=== PATIENT | male | born 1950 | race Caucasian/White ===

== ENCOUNTER → 2018-12-29 10:32 | Outpatient (CLI) | payer MEDICARE, BC, SELFPAY ==
--- NOTE | 2018-12-29 11:15 | RAD_ITS ---
STUDY: X-RAY - PELVIS AND RIGHT HIP REASON FOR EXAM: Male, 68 years old. Pain, no known injury. TECHNIQUE: 3 views of the pelvis and hip. COMPARISON: None. FINDINGS: No visible fracture. No osseous destruction. Alignment anatomic. Severe right hip osteoarthritis with complete loss of cephalad joint space with bwhh-cf-avyn articulation and sclerosis and cystic change in both the acetabular roof in the upper aspect of the femoral head. Only mild osteoarthritis of the left hip. No acute soft tissue abnormality. Calcific atherosclerosis. RAD/HIP, UNI W/ Pelvis 2-3 Views IMPRESSION: Severe right hip osteoarthritis. Electronically Signed: Jourdan Rodriguez, at 20:01 EDT Tel , Service support ,
--- NOTE | 2018-12-29 11:15 | RAD_ITS ---
STUDY: X-RAY - RIGHT KNEE REASON FOR EXAM: Male, 68 years old. Pain with no known injury. TECHNIQUE: 4 view(s) of the knee. COMPARISON: None. FINDINGS: No visible fracture. No osseous destruction. Alignment anatomic. Mild tricompartmental osteoarthritis. Soft tissues unremarkable. RAD/Knee 4 or More Views IMPRESSION: No acute osseous abnormality. Mild for age tricompartmental osteoarthritis. Electronically Signed: Jourdan Rodriguez, at 19:49 EDT Tel , Service support ,
[2018-12-29 12:55] LABS: Absolute Lymphocyte Count 1.99 X10^3/uL (0.83-4.51); Absolute Neutrophil Count 3.7 X10^3/uL (2.0-7.7); Basophil# 0.04 X10^3/uL; Basophil% 0.6 % (0-1); Eosinophil# 0.11 X10^3/uL; Eosinophils% 1.7 % (0-5); Hematocrit 46.8 % (40-54); Hemoglobin 16.6 g/dL (13.0-16.5); Lymphocyte # 1.99 X10^3/ul (4.0); Mean Corp Hgb Conc 35.5 g/dL (32-36); Mean Corpuscular Volume 90.3 fL (80-94); Mean Platelet Vol. 10.2 fl (6.2-12.0); Monocyte# 0.56 X10^3/uL; Monocyte% 8.7 % (0-10); NRBC Flagged by Analyzer 0 % (0-5); Neutrophil % 57.7 % (47-70); Platelet Count 206 K/mm3 (150-450); RBC Distribution Width CV 13.5 % (11.6-14.6); RBC Distribution Width SD 45.1 fl (35.1-43.9); Red Blood Count 5.18 M/mm3 (4.6-6.2); White Blood Count 6.4 K/mm3 (4.4-11.0)
[2018-12-29 13:19] LABS: ALB/GLOB Ratio 1.1 RATIO (0.9-2.4); AST(SGOT) 22 U/L (15-37); Alanine Aminotransfer ALT/SGPT 35 U/L (16-61); Alkaline Phosphatase 70 U/L (45-117); Anion Gap 4 (5-15); BUN 21 mg/dL (7-18); BUN/Creat Ratio 22.4 RATIO (10-20); Calcium,Total 8.6 mg/dL (8.5-10.1); Chloride 109 mmol/L (98-107); Creatinine, Serum 0.94 mg/dL (0.70-1.30); EST Glomerular Filtration Rate 85 mL/min (>60); Est Glom Filt Rate - Afr Amer 103 mL/min (>60); Globulin 3.8 g/dL (2.2-4.2); Glucose 105 mg/dL (74-106); PSA,Total - Annual Screen 2.12 ng/mL (0.00-4.00); Potassium 3.8 mmol/L (3.5-5.1); Protein, Total 7.8 g/dL (6.4-8.2); Sodium Level 140 mmol/L (136-145); Thyroid Stim Hormone (TSH) 3.11 uIU/mL (0.358-3.74)
[2018-12-29 14:53] LABS: Hepatitis C Antibody Non-Reactive (Nonreactive)
== END ==
PROVIDERS: Family Provider Family Medicine Geriatric Medicine; PCP Family Medicine Geriatric Medicine; Referring Provider Family Medicine Geriatric Medicine; Visit Provider Family Medicine Geriatric Medicine
DX: R53.83 Other fatigue (principal); Z12.5 Encounter for screening for malignant neoplasm of prostate; Z13.89 Encounter for screening for other disorder; M25.569 Pain in unspecified knee; M25.559 Pain in unspecified hip
CPT/HCPCS: 36415; 73502; 73564; 80053; 84153; 84443; 85025; 86803; G0103

== ENCOUNTER → 2019-02-07 09:11 | Outpatient (CLI) | payer MEDICARE, BC, SELFPAY ==
--- NOTE | 2019-02-07 09:12 | RAD_ITS ---
STUDY: X-RAY - LUMBAR SPINE REASON FOR EXAM: Male, 68 years old. Low back pain, right hip pain. TECHNIQUE: 5 view(s) of the lumbar spine were obtained. COMPARISON: None FINDINGS: Normal lumbar lordosis. There is no substantial scoliosis. There is a normal alignment of the vertebrae. Moderate wedge compression fracture of L1 which may be acute or chronic. Clinical correlation MRI may be useful. Normal disc space heights. The soft tissue structures are unremarkable. RAD/L/S Spine Min 4 Views IMPRESSION: Moderate wedge compression fracture of L1 which may be acute or chronic and clinical correlation MRI would be useful. Electronically Signed: Mauricio Thomas MD at 9:57 EDT Tel , Service support ,
== END ==
PROVIDERS: Family Provider Family Medicine Geriatric Medicine; PCP Family Medicine Geriatric Medicine; Referring Provider Orthopaedic Surgery; Visit Provider Orthopaedic Surgery
DX: R20.8 Other disturbances of skin sensation (principal)
CPT/HCPCS: 72110

== ENCOUNTER → 2019-03-30 08:41 | Outpatient (CLI) | payer MEDICARE, BC, SELFPAY ==
[2019-02-07 09:17] VITALS: BMI 38.2
[2019-03-30 11:45] LABS: Absolute Lymphocyte Count 3.56 X10^3/uL (0.83-4.51); Absolute Neutrophil Count 4.2 X10^3/uL (2.0-7.7); Basophil# 0.04 X10^3/uL; Basophil% 0.5 % (0-1); Eosinophil# 0.18 X10^3/uL; Hematocrit 46.7 % (40-54); Hemoglobin 16.5 g/dL (13.0-16.5); Lymphocyte # 3.56 X10^3/ul (4.0); Lymphocyte % 40.5 % (19-41); Mean Corp Hgb Conc 35.3 g/dL (32-36); Mean Corpuscular Hgb 31.4 pg (27.0-32.0); Mean Corpuscular Volume 88.8 fL (80-94); Mean Platelet Vol. 10.1 fl (6.2-12.0); Monocyte# 0.79 X10^3/uL; NRBC Flagged by Analyzer 0 % (0-5); Neutrophil # 4.21 X10^3/uL (2.7-7.7); Neutrophil % 47.8 % (47-70); Platelet Count 215 K/mm3 (150-450); RBC Distribution Width CV 13.2 % (11.6-14.6); RBC Distribution Width SD 42.7 fl (35.1-43.9); Red Blood Count 5.26 M/mm3 (4.6-6.2); White Blood Count 8.8 K/mm3 (4.4-11.0)
[2019-03-30 12:02] LABS: ALB/GLOB Ratio 1.3 RATIO (0.9-2.4); AST(SGOT) 18 U/L (15-37); Alanine Aminotransfer ALT/SGPT 31 U/L (16-61); Albumin, Serum 4.4 g/dL (3.2-5.0); Alkaline Phosphatase 73 U/L (45-117); Anion Gap 8 (5-15); BUN 18 mg/dL (7-18); BUN/Creat Ratio 16.5 RATIO (10-20); Calcium,Total 8.8 mg/dL (8.5-10.1); Chloride 112 mmol/L (98-107); Creatinine, Serum 1.09 mg/dL (0.70-1.30); EST Glomerular Filtration Rate 71 mL/min (>60); Est Glom Filt Rate - Afr Amer 87 mL/min (>60); Globulin 3.3 g/dL (2.2-4.2); Glucose 106 mg/dL (74-106); Potassium 3.8 mmol/L (3.5-5.1); Protein, Total 7.7 g/dL (6.4-8.2); Sodium Level 145 mmol/L (136-145); Thyroid Stim Hormone (TSH) 4.63 uIU/mL (0.358-3.74)
[2019-03-30 12:03] LABS: Vitamin D,25 Hydroxy 14.5 ng/mL (29.95-100.01)
== END ==
PROVIDERS: Family Provider Family Medicine Geriatric Medicine; PCP Family Medicine Geriatric Medicine; Visit Provider Family Medicine Geriatric Medicine
DX: E55.9 Vitamin D deficiency, unspecified (principal); R53.83 Other fatigue
CPT/HCPCS: 36415; 80053; 82306; 84443; 85025

== ENCOUNTER → 2019-04-13 08:18 | Outpatient (CLI) | payer MEDICARE, BC, SELFPAY ==
[2019-04-13 07:53] VITALS: BMI 38.2
--- NOTE | 2019-04-13 08:33 | RAD_ITS ---
STUDY: X-RAY - PELVIS AND RIGHT HIP REASON FOR EXAM: Male, 68 years old. PAIN TECHNIQUE: 3 views of the pelvis and hip. COMPARISON: 12/29/2018 FINDINGS: There is a non-specific bowel gas pattern. Normal visualized soft tissue structures. Normal bilateral superior and inferior pubic rami. Normal pubic symphysis. Normal bilateral ischial tuberosities. There are osteoarthritic changes of the femoral head with marginal osteophyte formation. There is cortical sclerosis with sub-cortical cyst formation of the acetabulum and adjacent/superior femoral head. There is severe articular joint space narrowing of the hip. RAD/HIP, UNI W/ Pelvis 2-3 Views IMPRESSION: Severe osteoarthrosis of the right hip similar since 12/29/2017 Electronically Signed: Chirag Tripathi MD (Brooks) at 12:39 EST , Service support ,
== END ==
PROVIDERS: Family Provider Family Medicine Geriatric Medicine; PCP Family Medicine Geriatric Medicine; Referring Provider Orthopaedic Surgery; Visit Provider Orthopaedic Surgery
DX: M16.11 Unilateral primary osteoarthritis, right hip (principal)
CPT/HCPCS: 73502

== ENCOUNTER → 2019-05-07 13:58 | Outpatient (CLI) | payer MEDICARE, BC, SELFPAY ==
[2019-04-23 08:16] VITALS: BMI 38.8
[2019-05-07 10:06] VITALS: BMI 38.8
--- NOTE | 2019-05-07 13:59 | CT_ITS ---
STUDY: CT RIGHT KNEE WITHOUT CONTRAST REASON FOR EXAM: Male, 68 years old. PRE-OP [facility] HIP RADIATION DOSAGE (If Supplied By Facility): CTDIvol = ( 24.35 ) mGy, DLP = ( 1953.90 ) mGycm TECHNIQUE: Transaxial CT imaging of the knee was performed. Coronal and sagittal images were reformatted. Individualized dose optimization techniques were used for this CT. COMPARISON: None. FINDINGS: Degenerative changes in the medial femoral condyle and medial tibial plateau. There is moderate narrowing of the articular joint space of the medial knee compartment. Degenerative changes in the lateral femoral condyle and lateral tibial plateau.There is moderate narrowing of the articular joint space of the lateral knee compartment. Normal proximal tibiofibular articulation. There is small joint effusion. The quadriceps tendon is grossly normal. The patellar tendon is grossly normal. Normal Hoffa''s fat pad. Severe degenerative osteoarthritis is in the right hip joint. The alignment of the osseous structures is anatomic. CT/Extremity Lower without Contra IMPRESSION: Degenerative osteoarthritis. Electronically Signed: Lisa Ta, at 7:56 EST Tel , Service support ,
== END ==
PROVIDERS: Family Provider Family Medicine Geriatric Medicine; PCP Family Medicine Geriatric Medicine; Referring Provider Orthopaedic Surgery; Visit Provider Orthopaedic Surgery
DX: M16.11 Unilateral primary osteoarthritis, right hip (principal)
CPT/HCPCS: 73700

== ENCOUNTER → 2019-05-16 15:07 | Outpatient (CLI) | payer MEDICARE, BC, SELFPAY ==
[2019-02-07 09:17] VITALS: BMI 38.2
[2019-05-07 10:06] VITALS: BMI 38.8
[2019-05-16 17:56] LABS: Absolute Lymphocyte Count 2.24 X10^3/uL (0.83-4.51); Basophil# 0.04 X10^3/uL; Basophil% 0.6 % (0-1); Eosinophil# 0.07 X10^3/uL; Hemoglobin 16.3 g/dL (13.0-16.5); Lymphocyte # 2.24 X10^3/ul (4.0); Mean Corp Hgb Conc 34.7 g/dL (32-36); Mean Corpuscular Volume 89.5 fL (80-94); Mean Platelet Vol. 10.3 fl (6.2-12.0); Monocyte# 0.66 X10^3/uL; Monocyte% 9.4 % (0-10); NRBC Flagged by Analyzer 0 % (0-5); Neutrophil # 3.97 X10^3/uL (2.7-7.7); Neutrophil % 56.9 % (47-70); Platelet Count 206 K/mm3 (150-450); RBC Distribution Width CV 13.3 % (11.6-14.6); RBC Distribution Width SD 43.6 fl (35.1-43.9); Red Blood Count 5.25 M/mm3 (4.6-6.2)
[2019-05-16 18:15] LABS: International Normalized Ratio 1.3; Prothrombin Time (Protime)PT. 15.6 SECONDS (11.7-14.9)
[2019-05-16 18:33] LABS: Anion Gap 5 (5-15); BUN 20 mg/dL (7-18); BUN/Creat Ratio 21.3 RATIO (10-20); Calcium,Total 8.9 mg/dL (8.5-10.1); Chloride 112 mmol/L (98-107); Creatinine, Serum 0.94 mg/dL (0.70-1.30); EST Glomerular Filtration Rate 85 mL/min (>60); Est Glom Filt Rate - Afr Amer 103 mL/min (>60); Glucose 96 mg/dL (74-106); Potassium 3.8 mmol/L (3.5-5.1); Sodium Level 141 mmol/L (136-145); Thyroid Stim Hormone (TSH) 2.31 uIU/mL (0.358-3.74)
== END ==
PROVIDERS: Family Provider Family Medicine Geriatric Medicine; PCP Family Medicine Geriatric Medicine; Visit Provider Family Medicine Geriatric Medicine
DX: Z01.818 Encounter for other preprocedural examination (principal); E03.9 Hypothyroidism, unspecified; I10 Essential (primary) hypertension
CPT/HCPCS: 36415; 80048; 84443; 85025; 85610

== ENCOUNTER 2019-05-24 09:24 | Observation (INO) | payer MEDICARE, BC, SELFPAY ==
[2019-04-23 08:16] VITALS: BP 122/85; PULSE 96; RESP 16; TEMP 36.5; O2SAT 95; BMI 38.8
--- NOTE | 2019-04-23 08:38 | SDCEKG_ITS ---
Test Reason : Blood Pressure : / mmHG Vent. Rate : 087 BPM Atrial Rate : 087 BPM P-R Int : 164 ms QRS Dur : 090 ms QT Int : 362 ms P-R-T Axes : 034 -34 062 degrees QTc Int : 435 ms Normal sinus rhythm Left axis deviation Poor R- wave Progression Abnormal ECG Confirmed by ASHLEY LEVY, CRUZITO ([id number]), editor map [place] BUSTILLO ([id number]) on 04/27/2019 3:20:27 PM Referred By: Artur Florez Confirmed By:CRUZITO RAMIREZ MD
[2019-05-07 10:06] VITALS: BMI 38.8
[2019-05-24] VITALS (12 sets, daily range): BP systolic 101–149; BP diastolic 64–95; PULSE 62–86; RESP 16–18; TEMP 36.4–37.2; O2SAT 94–100; BMI 38.8
[2019-05-24] MEDS: Lactated Ringers 1,000 ML 100 ML IV ×2 (10:20→15:33)
[2019-05-24] MEDS: Acetaminophen 500 MG Tablet 1000 MG PO ×2 (10:22→21:19)
[2019-05-24] MEDS: Magnesium Sulfate 4gm/100mL 4 GM/100 ML IV.SOLN. IV (10:22)
[2019-05-24] MEDS: Gabapentin 600 MG Tablet PO (10:23)
[2019-05-24] MEDS: Celecoxib 200 MG Capsule 400 MG PO (10:23)
[2019-05-24] MEDS: Scopolamine 1mg/72hr Patch 1 PATCH TRANSDERM. (10:24)
[2019-05-24 11:20] LABS: Bedside Glucose 79 mg/dL (70-110)
[2019-05-24] MEDS: Cefazolin 2 GM in 0.9% Normal Saline 100 ML IV ×2 (12:00→20:25)
[2019-05-24] MEDS: dexAMETHasone 10 MG/ML Vial IV (12:29)
--- NOTE | 2019-05-24 14:33 | OP.PCM_ITS ---
Report of Operation Date of Procedure: 05/24/19 Description of Surgical Findings:: Preoperative diagnosis: Right hip DJD Postoperative diagnosis: Same Procedure: CT-guided Makoplasty assisted right total hip arthroplasty Implants: Rodanthe Accolade II stem size 6, 132 degree neck angle -2.5 neck length 58 mm Trident II acetabular shell with 20 mm cancellous screw 36 mm ceramic head Anesthesia: Spinal EBL: 200 cc Complications: None Condition: Stable to PACU Indication for procedure: This is a 68-year-old male who has had long-standing arthrosis of the hip who has failed conservative treatment and wished to undergo total hip arthroplasty. We did discuss operative versus nonoperative intervention including risks of bleeding, infection , nerve artery tissue damage, need for further surgery, fracture, leg length discrepancy dislocation blood clot and need for postoperative physical therapy and postoperative expectations. An informed consent was signed. Procedure: Patient was met in the preoperative holding area once again the operative extremity was identified by both patient and physician and was marked. Patient was met by anesthesia spinal was placed. patient was then positioned in the lateral decubitus position on a well-padded pegboard with an axillary roll. All bony prominences were checked and padded. The patient was prepped and draped in the usual sterile fashion. A timeout was called to ensure the proper patient procedure and extremity were being contemplated. Anatomic landmarks were palpated and marked for a standard posterior lateral approach. Prior to this the ASIS was palpated and 3 fingerbreadths proximal to this 3 pins were placed at a 45 degree angle into the iliac crest with good purchase, stab incisions were made with a 15 blade into the skin prior to placement. The Makoplasty array was then secured. A 10 blade scalpel was used to make a posterior incision through the skin and subcutaneous tissue. retractors were used and electrocautery was used to maintain meticulous hemostasis and dissect full-thickness flaps until the gluteal fascia was reached. The gluteal fascia was incised in line with the gluteal fibers. The bursal tissue was then freed from the underside and a Charnley retractor was placed. The femoral trochanteric checkpoint was placed and leg length was assessed using the trochanteric checkpoint and an EKG lead that was placed on the knee prior to prepping the leg .the fat pad was then elevated off of the external rotators with electrocautery and the external rotators were dissected off of the greater trochanter including the piriformis and were tagged with #1 Ethibond for later repair. The joint capsule opened with posterior trapdoor technique. The hip was surgically dislocated. The measurement on the preoperative CT from the top of the lesser trochanter to the femoral neck cut was marked Hohmann was placed around the lesser trochanter. A neck cutting guide was used to juan the neck with a Bovie and an oscillating saw was used complete the femoral neck cut. The femoral head was then removed and sized. We then turned our attention to the acetabulum. A Bovie was used to make a perforation in the anterior joint capsule and a Murillo retractor was placed this was repeated in the 6 o'clock position and a wide khang was placed there. With a long handled knife the labral and pulvinar tissue were removed. We then registered the acetabulum with the pointing array and confirmed our landmarks. Also placed a checkpoint in the superior acetabulum and a Steinmann pin was also placed in this location to aid in retraction. Once the socket was thoroughly prepared and labral tissue pulmonary was removed we single reamed with the robotic arm. We then used the robotic arm to position the acetabular implant and impacted it into place under robotic guidance. We then proceeded to place a posterior superior screw by drilling first measuring and inserting the screw. We then inserted a trial liner. And turned our attention back to the femur at this point a femoral elevator was used. As well as a pointed wide Hohmann around the lesser trochanter and a Hohmann to help retract the gluteus medius. A box chisel was used to remove excess lateral neck followed by a canal finder and a lateralizing reamer. This was followed by sequential broaches. Attention was made of the version within the canal based on preoperative templating. Once the final broach was seated we then trialed reduced the hip it was determined that a 132 degree neck angle with a -2.5 neck length was the appropriate size. We then checked stability with shuck testing as well as flexion and internal rotation. then proceeded with hip extension and checked leg lengths at the knees and heels as well as with the trochanteric checkpoint and knee EKG lead. At this point trials were removed. A liner was inserted to the cup. The femoral stem was inserted. We re-trialed and then proceeded to impact the femoral head onto the Tim taper. We then surgically reduce the hip check stability again and leg lengths and were satisfied. Betadine rinse was allowed to sit for 5 minutes while everyone changed their gloves. Thorough irrigation was performed. Followed by closure of the external rotators with #2 FiberWire followed by closu re of gluteal fascia with #1 Ethibond. 0 Vicryl fat stitches and 2-0 Vicryl subcutaneous stitches and patt in the skin. A pulls were placed in the pin sites over the iliac crest with Xeroform 4 x 4 and OpSite. dressing was applied to incisional area with Mepilex Ag and an abduction pillow was placed. Patient tolerated the procedure well there was no intraoperative complications all counts were correct and the patient was brought back to the PACU in stable condition
--- NOTE | 2019-05-24 14:39 | HP.PCM_ITS ---
History and Physical Date of Admission: 05/24/19 Intake Intake Visit Reasons: Right Hip Is patient in pain?: Yes Pain scale (1-10): 7 Allergies Penicillins Allergy (Unknown, Verified 04/23/19 08:13) unknown streptomycin Allergy (Unknown, Verified 04/23/19 08:13) unknown Sulfa (Sulfonamide Antibiotics) Allergy (Verified 04/23/19 08:14) Other Medications pravastatin 40 mg tablet 40 mg PO DAILY #30 tab 02/07/19 [History Confirmed 05/07/19] Levothyroxine [Synthroid] 25 mcg PO DAILY 04/23/19 [History Confirmed 05/07/19] Naproxen Sodium [Aleve] 220 mg PO PRN PRN 04/23/19 [History Confirmed 05/07/19] PFSH Social History (Updated 05/07/19 @ 12:01 by Artur Florez DO) Smoking Status: Never smoker HPI Right Hip: Details: Parts of this documentation were recorded by a scribe, this documentation accurately reflects the service provided and the decisions made by me, Artur Florez DO 05/07/19 0753. GOLDY HILL is a 68 year old M here today for surgery consent for right GREG. He complains of right hip pain and quad tingling. He has an antalgic gait and states that walking increases his pain. He gets some relief with naproxen. He is aware that he will need to stop the nsaids for a week prior to surgery. He has his CT scan scheduled this afternoon. He also has his post op PT scheduled for 05/28/[facility] Reports as per HPI, Reports abnormal walking, Reports joint pain Skin/Breast Reports system reviewed and no additional complaints, except as docu Neuro Yes as per HPI, Yes abnormal walking Ortho Exam Right Hip Skin: No Ecchymosis, No soft tissue swelling, No Erythema HIP: Right Hip Skin: No Ecchymosis, No soft tissue swelling, No Erythema Special Tests: No TTP Greater Troch, No TTP Greater sciatic notch, No ITB tenderness Homans Sign: No HIP: internal rotation 5 with pain external rotation 5 with pain Awake and alert no acute distress mood appropriate and cooperative Intact sensation light touch Supplemental Info 12/29/2018 x-ray right hip: Severe [id number] DJD 12/29/2018 x-ray right knee:faint spurring and narrowing no acute findings 02/07/2019 lumbar spine: Age indeterminant at compression fracture L1 Assessment & Plan Problems 1. Primary osteoarthritis of right hip M16.11 Plan Risks, benefits and alternatives of surgery reviewed including but not limited to bleeding, infection, nerve, artery and/or tissue damage, fracture, VTE, leg length discrepancy, dislocation, need for hip precautions, continued pain and expected post-operative course. Reviewed the ability to use his SUV and the importance of the rehab. Reviewed the differences in approaches and the pros and cons. Follow up postop or sooner if pain, swelling, numbness or associated symptoms, or concerns develop. All questions answered. Patient in agreement of plan. Coding Level of Care Code Off vis,est,level 3 Diagnoses Primary osteoarthritis of right hip M16.11 ??Osteoarthritis type: primary I have re-examined the patient. There are no clinical changes since date of exam
--- NOTE | 2019-05-24 14:59 | RAD_ITS ---
STUDY: X-RAY - RIGHT HIP REASON FOR EXAM: Male, 68 years old. POST OP TECHNIQUE: 2 views of the right hip. COMPARISON: CT exam 05/07/2019 and radiographs 04/13/2020. FINDINGS: There is a non-specific bowel gas pattern. Normal visualized soft tissue structures. This is a post operative film. There is total right hip prosthesis in good position.. There are no fractures. There is a surgical staple line. There is soft tissue edema and air within the soft tissues secondary to surgery.. RAD/Hip Min 2 Views (Portable) IMPRESSION: This is a post operative film. There is total right hip prosthesis in good position.. There are no fractures. There is a surgical staple line. There is soft tissue edema and air within the soft tissues secondary to surgery.. Electronically Signed: Je Romero, at 7:06 EST Tel , Service support ,
[2019-05-24] MEDS: Lactated Ringers 1,000 ML 125 ML IV ×2 (15:34→16:37)
[2019-05-24] MEDS: Senna/Docusate Sodium 1 Tablet 2 TABLET PO (21:19)
[2019-05-24] MEDS: Pravastatin 40 MG Tablet PO (21:19)
[2019-05-24] MEDS: APIXABAN 2.5 MG TABLET PO (21:19)
[2019-05-25] MEDS: Lactated Ringers 1,000 ML 125 ML IV (01:14)
[2019-05-25 02:26] VITALS: BP 119/79; PULSE 79; RESP 16; TEMP 36.8; O2SAT 95
[2019-05-25] MEDS: Cefazolin 2 GM in 0.9% Normal Saline 100 ML IV ×2 (03:53→12:37)
[2019-05-25] MEDS: oxyCODONE 5 MG Tablet PO (04:23)
[2019-05-25] MEDS: Levothyroxine 25 MCG TABLET PO (05:29)
[2019-05-25] MEDS: Acetaminophen 500 MG Tablet 1000 MG PO ×2 (05:29→13:18)
[2019-05-25 06:51] LABS: Hematocrit 40.4 % (40-54); Hemoglobin 13.9 g/dL (13.0-16.5); Mean Corp Hgb Conc 34.4 g/dL (32-36); Mean Corpuscular Hgb 30.8 pg (27.0-32.0); Mean Corpuscular Volume 89.4 fL (80-94); Mean Platelet Vol. 9.9 fl (6.2-12.0); Platelet Count 191 K/mm3 (150-450); RBC Distribution Width CV 13.1 % (11.6-14.6); RBC Distribution Width SD 42.8 fl (35.1-43.9); Red Blood Count 4.52 M/mm3 (4.6-6.2); Scan Indicated on CBC? Y/N NO
[2019-05-25 07:14] LABS: Anion Gap 6 (5-15); BUN 15 mg/dL (7-18); BUN/Creat Ratio 12.8 RATIO (10-20); Calcium,Total 8.2 mg/dL (8.5-10.1); Chloride 110 mmol/L (98-107); Creatinine, Serum 1.17 mg/dL (0.70-1.30); EST Glomerular Filtration Rate 66 mL/min (>60); Est Glom Filt Rate - Afr Amer 80 mL/min (>60); Estimated Creatinine Clearance 60.43 ml/min; Glucose 140 mg/dL (74-106); Potassium 3.7 mmol/L (3.5-5.1); Sodium Level 140 mmol/L (136-145)
--- NOTE | 2019-05-25 08:04 | PCM.DC.ORTHO ---
Discharge Diet: No Restrictions Weight Bearing Status: Weight bearing as tolerated Call your doctor if you observe: Shortness of breath, Chest pain Additional Instructions: Begin daily showering warm water antibacterial soap postop day #3( 72hrs Post-operatively) and then daily. Leave the dressing on for 72 hours postoperatively then may remove prior to first shower and change dressing daily after this until no drainage for 2 consecutive days then may leave open to air. Follow hip precautions as reviewed by hospital physical therapist. Wear compression stockings, may remove at night. Start physical therapy as directed in hospital. Call with any concerns Allergies/Adverse Reactions: Allergies Penicillins Allergy (Unknown, Verified 05/24/19 10:08) passed out had as a child, has had others in same family with no reaction streptomycin Allergy (Unknown, Verified 05/24/19 10:08) unknown Sulfa (Sulfonamide Antibiotics) Allergy (Verified 05/24/19 10:08) sick had a young age Medications to take at Discharge pravastatin 40 mg tablet 40 mg PO DAILY #30 tab 02/07/19 Levothyroxine [Synthroid] 25 mcg PO DAILY 04/23/19 Acetaminophen [Tylenol] 1,000 mg PO Q6H PRN #100 tab 05/25/19 Apixaban [Eliquis] 2.5 mg PO BID #42 tab 05/25/19 Oxycodone [Oxyir] 5 - 10 mg PO Q4H PRN PRN #50 tablet 05/25/19 The following prescriptions were given: Apixaban [Eliquis] 2.5 mg PO BID #42 tab Transmission Status: Pending to [facility] Oxycodone [Oxyir] 5 - 10 mg PO Q4H PRN PRN #50 tablet PRN Reason: Pain Score 4-10/10 Transmission Status: Sent to [facility] Acetaminophen [Tylenol] 1,000 mg PO Q6H PRN #100 tab Transmission Status: Pending to [facility] Primary Care Physician: Royal Mehta Chi, MD [Primary Care Provider] - Test Results: Test results from this visit will be discussed in further detail at your follow-up appointment, if applicable. Please Follow Up With: Artur Florez DO - 2 weeks
[2019-05-25 08:25] VITALS: BP 119/82; PULSE 89; RESP 20; TEMP 36.6; O2SAT 96
[2019-05-25] MEDS: Senna/Docusate Sodium 1 Tablet 2 TABLET PO (09:00)
[2019-05-25] MEDS: APIXABAN 2.5 MG TABLET PO (09:00)
--- NOTE | 2019-05-25 09:15 | DS.PCM_ITS ---
Discharge Date and Diagnosis Date of Admission: 05/24/19 Date of Discharge: 05/25/19 Hospital Course and Treatment Summary of Care Provided: The patient is a 68 year old M underwent [left] total hip arthroplasty on date of admission without any intraoperative complications. Patient has failed can conservative treatment wished to undergo the elective procedure. Patient underwent the procedure without any intraoperative complications, did receive pre-and postoperative antibiotics which were discontinued within 23 hours postoperatively. Patient did receive trans-examined acid and vital signs remained stable postoperatively as well as hemoglobin and hematocrit and did not require any blood transfusion. Seen by physical therapy, did progress with ambulation and was started on both mechanical chemical DVT prophylaxis in the form of SCDs ALEE hose and[ Eliquis 2.5 mg twice daily] for which patient will continue for 3 weeks post hospital discharge. To be set up with [out patient physical therapy] and will follow-up in the office in 2 weeks for staple removal wound check . - Physical Exam Vitals/I&O's: Vital Signs Temp Pulse Resp BP Pulse Ox 97.9 F 89 20 H 119/82 H 96 05/25/19 08:25 05/25/19 08:25 05/25/19 08:25 05/25/19 08:25 05/25/19 08:25 Oxygen Flow Rate (L/min) 6 Oxygen Delivery Method Room Air Weight: 263 lb 3.711 oz Body Mass Index (BMI) 38.8 Intake and Output for Last 24 Hours 05/23/19 05/24/19 05/25/19 23:59 23:59 23:59 Intake Total 3244.17 / 3244.17 1332.92 / 1332.92 Output Total 475 / 475 750 / 750 Balance 2769.17 / 2769.17 582.92 / 582.92 General: Alert, Oriented x3, Cooperative, No apparent distress Extremities: - - Dressings clean dry and intact compartment soft neurovascular intact Laboratory Results 05/24/19 10:27: POC Glucose 79 05/25/19 06:15: WBC 16.0 H, RBC 4.52 L, Hgb 13.9, Hct 40.4, MCV 89.4, MCH 30.8, MCHC 34.4, RDW Std Deviation 42.8, RDW Coeff of Chase 13.1, Plt Count 191, MPV 9.9 05/25/19 06:15: Sodium 140, Potassium 3.7, Chloride 110 H, Carbon Dioxide 24.0, Anion Gap 6, BUN 15, Creatinine 1.17, Estim Creat Clear Calc 60.43, Est GFR (MDRD) Af Amer 80, Est GFR (MDRD) Non-Af 66, BUN/Creatinine Ratio 12.8, Glucose 140 H, Calcium 8.2 L Current Medications Acetaminophen (Tylenol) 1,000 mg PO Q8 [facility] Last Admin: 05/25/19 05:29 Dose: 1,000 mg Documented by: Apixaban (Eliquis) 2.5 mg PO BID [facility] Last Admin: 05/25/19 09:00 Dose: 2.5 mg Documented by: Hydromorphone HCl (Dilaudid Inj) 0.5 mg IV Q2H PRN PRN PRN Reason: Pain Score 6-10/10 Lactated Ringer's () 1,000 mls @ 125 mls/hr IV .Q8H [facility] Last Infusion: 05/25/19 06:02 Dose: 0 mls/hr Documented by: Cefazolin Sodium 2 gm/ Sodium (Chloride) 110 mls @ 150 mls/hr IV Q8H [facility] Last Infusion: 05/25/19 04:37 Dose: Infused Documented by: Sodium Chloride () 250 mls @ 15 mls/hr IV .[id number] PRN PRN Reason: Saline Flush Sodium Chloride () 250 mls @ 15 mls/hr IV .[id number] PRN PRN Reason: Additional IVPB Infusion Ketorolac Tromethamine (Toradol) 15 mg IV Q6H PRN PRN PRN Reason: Pain Score 1-5/10 Stop: 05/26/19 14:27 Levothyroxine Sodium (Synthroid) 25 mcg PO DAILY@0600 [facility] Last Admin: 05/25/19 05:29 Dose: 25 mcg Documented by: Ondansetron HCl (Zofran) 4 mg IV Q6H PRN PRN PRN Reason: NAUSEA Oxycodone HCl (Oxyir) 5 - 10 mg PO Q4H PRN PRN PRN Reason: Pain Score 4-10/10 Last Admin: 05/25/19 04:23 Dose: 5 mg Documented by: Pravastatin Sodium (Pravachol) 40 mg PO QHS [facility] Last Admin: 05/24/19 21:19 Dose: 40 mg Documented by: Senna/Docusate Sodium (Senokot-S, Supriya-Colace) 2 tablet PO BID [facility] Last Admin: 05/25/19 09:00 Dose: 2 tablet Documented by: Sodium Chloride () 10 - 40 ml IV UD PRN PRN Reason: SALINE FLUSH Discharge Diet: No Restrictions Weight Bearing Status: Weight bearing as tolerated Call your doctor if you observe: Shortness of breath, Chest pain Home Medications: Medications to take at Discharge pravastatin 40 mg tablet 40 mg PO DAILY #30 tab 02/07/19 Levothyroxine [Synthroid] 25 mcg PO DAILY 04/23/19 Acetaminophen [Tylenol] 1,000 mg PO Q6H PRN #100 tab 05/25/19 Apixaban [Eliquis] 2.5 mg PO BID #42 tab 05/25/19 Oxycodone [Oxyir] 5 - 10 mg PO Q4H PRN PRN #50 tab 05/25/19 Following Prescrptions Were Given to Patient: Apixaban [Eliquis] 2.5 mg PO BID #42 tab Transmission Status: Received by [facility] Oxycodone [Oxyir] 5 - 10 mg PO Q4H PRN PRN #50 tab PRN Reason: Pain Score 4-10/10 Transmission Status: Received by [facility] Acetaminophen [Tylenol] 1,000 mg PO Q6H PRN #100 tab Transmission Status: Received by [facility] Primary Care Physician: Royal Mehta Chi, MD [Primary Care Provider] - Please Follow Up With: Artur Florez DO - 2 weeks Additional Instructions: Begin daily showering warm water antibacterial soap postop day #3( 72hrs Post- operatively) and then daily. Leave the dressing on for 72 hours postoperatively then may remove prior to first shower and change dressing daily after this until no drainage for 2 consecutive days then may leave open to air. Follow hip precautions as reviewed by hospital physical therapist. Wear compression stockings, may remove at night. Start physical therapy as directed in hospital. Call with any concerns Medical Necessity - Tobacco Use Smoking Status: Never smoker Tobacco Use: Non-smoker Meaningful Use Info Meaningful Use Diagnoses (Choose all that apply): None applicable
--- NOTE | 2019-05-25 09:25 | CASEMGMT ---
RN CM Face to Face with patient for initial transition planning/care coordination assessment. RN CM introduced self and role at [facility]. Patient sitting in chair, alert and oriented. Patient willing to participate in assessment and is able to answer all questions appropriately. Care providers, pharmacy, and demographics verified. Patient wishes to discharge home and is setup with [facility] outpatient therapy for Tuesday. Patient states he has no further needs or concerns at this time. CM to follow for discharge planning needs that may arise. PCP: Tyson Specialists: Vikki Morrison Pharmacy: [facility] sent to [facility] retail today Insurance: [employer] Prescription Benefit: yes Living Will/HPOA: None LNOK: Living Arrangements: Patient lives with in 2 story home with bed and bath on the first floor. Patient independent at home prior to surgery. Transportation: DME/HHC: Patient has tub bench, BSC, hip kit, walker. Patient is scheduled for outpatient therapy at [facility] in [place] for Tuesday05/28/19. Disposition Plan: Patient to discharge home with outpatient therapy, family support, and follow-up plans in place. Lilo MARKN, RN, CM
[2019-05-25 13:27] VITALS: BP 148/85; PULSE 68; RESP 18; TEMP 36.8; O2SAT 96
== END 2019-05-25 14:26 | disposition home or self-care (01) ==
LOC: MS3 05-25 06:34 → ACINP 05-25 10:05 → MS3 05-25 10:05
PROVIDERS: Admitting Provider Orthopaedic Surgery; Family Provider Family Medicine Geriatric Medicine; PCP Family Medicine Geriatric Medicine; Referring Provider Orthopaedic Surgery; Visit Provider Orthopaedic Surgery
PROC: 8E0Y0CZ Robotic Assisted Procedure of Lower Extremity, Open Approach (ICD-10-PCS; CPT 27130; principal; 2019-05-24 11:00)
DX: M16.11 Unilateral primary osteoarthritis, right hip (principal); Z79.899 Other long term (current) drug therapy; E07.9 Disorder of thyroid, unspecified; E78.00 Pure hypercholesterolemia, unspecified
CPT/HCPCS: 01214; 27130; 36415; 73502; 80048; 82962; 85027; 87081; 93005; 96360; 96361; 97110; 97162; 97167; 97530; 99251; C1713; C1776; J7120; G0463

== ENCOUNTER → 2019-05-28 11:27 | Outpatient (CLI) | payer MEDICARE, BC, SELFPAY ==
[2019-05-24 16:20] VITALS: BMI 38.8
[2019-05-28 12:30] LABS: Absolute Lymphocyte Count 3.41 X10^3/uL (0.83-4.51); Absolute Neutrophil Count 8.3 X10^3/uL (2.0-7.7); Basophil# 0.04 X10^3/uL; Basophil% 0.3 % (0-1); Eosinophils% 0.8 % (0-5); Hematocrit 37.2 % (40-54); Hemoglobin 13.2 g/dL (13.0-16.5); Lymphocyte # 3.41 X10^3/ul (4.0); Lymphocyte % 25.9 % (19-41); Mean Corp Hgb Conc 35.5 g/dL (32-36); Mean Corpuscular Hgb 31.4 pg (27.0-32.0); Mean Corpuscular Volume 88.4 fL (80-94); Mean Platelet Vol. 9.8 fl (6.2-12.0); Monocyte# 1.24 X10^3/uL; Monocyte% 9.4 % (0-10); NRBC Flagged by Analyzer 0 % (0-5); Neutrophil # 8.34 X10^3/uL (2.7-7.7); Neutrophil % 63.1 % (47-70); Platelet Count 247 K/mm3 (150-450); RBC Distribution Width CV 13.3 % (11.6-14.6); RBC Distribution Width SD 43.1 fl (35.1-43.9); Red Blood Count 4.21 M/mm3 (4.6-6.2); White Blood Count 13.2 K/mm3 (4.4-11.0)
[2019-05-28 12:43] LABS: Anion Gap 9 (5-15); BUN 21 mg/dL (7-18); BUN/Creat Ratio 18.9 RATIO (10-20); Calcium,Total 8.7 mg/dL (8.5-10.1); Chloride 106 mmol/L (98-107); Creatinine, Serum 1.11 mg/dL (0.70-1.30); EST Glomerular Filtration Rate 70 mL/min (>60); Est Glom Filt Rate - Afr Amer 85 mL/min (>60); Glucose 112 mg/dL (74-106); Potassium 3.3 mmol/L (3.5-5.1); Sodium Level 140 mmol/L (136-145)
== END ==
PROVIDERS: PCP Family Medicine Geriatric Medicine; Visit Provider Family Medicine Geriatric Medicine
DX: R06.89 Other abnormalities of breathing (principal); N39.0 Urinary tract infection, site not specified
CPT/HCPCS: 36415; 80048; 85025; 87086

== ENCOUNTER → 2019-05-28 13:35 | Outpatient (CLI) | payer MEDICARE, BC, SELFPAY ==
[2019-05-24 16:20] VITALS: BMI 38.8
--- NOTE | 2019-05-28 13:41 | CT_ITS ---
STUDY: CTA CHEST REASON FOR EXAM: Male, 68 years old. DYSPNEA UPON EXERTION, HIP SX 3 DAYS AGO RADIATION DOSAGE (If Supplied By Facility): CTDIvol = ( 17.30 ) mGy, DLP = ( 563.59 ) mGycm TECHNIQUE: The examination was performed with the intravenous administration of 100 CC ISOVUE 370. Post-processing of the angiographic images was performed, with multiplanar reformation and 3D reconstruction. Individualized dose optimization techniques were used for this CT. COMPARISON: None. FINDINGS: Normal enhancement of the main pulmonary artery and right and left pulmonary arteries. Normal enhancement of the bilateral peripheral pulmonary arteries. There is no demonstrated pulmonary embolism. Normal thoracic aorta and visualized great vessels. There is no demonstrated aortic dissection. Normal heart and pericardium. Normal mediastinum. Normal hilar regions. Normal visualized trachea and bronchi. The lungs are well expanded. Normal pulmonary parenchyma. Normal pleura. Normal chest wall structures. Normal osseous structures. There is a 5.9 cm x 5.1 cm cyst in the upper pole of the right kidney. Small hiatal hernia. CT/CTA Chest W/WO Contrast IMPRESSION: Normal CTA chest examination, without a demonstrated pulmonary embolism or arterial dissection. Electronically Signed: Niko Armstrong, at 15:13 EST , Service support ,
--- NOTE | 2019-05-28 13:50 | RAD_ITS ---
STUDY: X-RAY - ABDOMEN/PELVIS REASON FOR EXAM: Male, 68 years old. ABDOMINAL PAIN, CONSTIPATION, RECENT HIP SX TECHNIQUE: Single AP view of the abdomen / pelvis. COMPARISON: None. FINDINGS: Normal visualized lung bases. There is a moderate amount of colonic fecal material. The visualized liver, spleen and kidneys are grossly normal in size and morphology. Normal soft tissue structures. There are degenerative changes of the visualized lumbar spine. Minimal dextroscoliosis. Prior right hip replacement. RAD/Abdomen Single View IMPRESSION: Moderate amount of the fecal material is seen throughout the colon. Prior right total hip replacement. Electronically Signed: Niko Armstrong, at 14:27 EST , Service support ,
== END ==
PROVIDERS: PCP Family Medicine Geriatric Medicine; Referring Provider Family Medicine Geriatric Medicine; Visit Provider Family Medicine Geriatric Medicine
DX: R06.00 Dyspnea, unspecified (principal); K56.41 Fecal impaction; N39.0 Urinary tract infection, site not specified
CPT/HCPCS: 36415; 71275; 74018; 80048; 85025; 87086; Q9967

== ENCOUNTER → 2019-08-22 12:05 | Outpatient (CLI) | payer MEDICARE, BC, SELFPAY ==
[2019-07-02 08:10] VITALS: BMI 38.8
== END ==
PROVIDERS: PCP Family Medicine Geriatric Medicine; Referring Provider Urology; Visit Provider Urology
DX: R30.0 Dysuria (principal)
CPT/HCPCS: 87086

== ENCOUNTER → 2019-08-30 11:02 | Outpatient (CLI) | payer MEDICARE, BC, SELFPAY ==
[2019-07-02 08:10] VITALS: BMI 38.8
== END ==
PROVIDERS: PCP Family Medicine Geriatric Medicine; Referring Provider Urology; Visit Provider Urology
DX: R82.998 Other abnormal findings in urine (principal)
CPT/HCPCS: 87086

== ENCOUNTER → 2019-11-06 16:12 | Outpatient (CLI) | payer MEDICARE, BC, SELFPAY ==
[2019-07-02 08:10] VITALS: BMI 38.8
[2019-11-06 16:55] LABS: Absolute Lymphocyte Count 2.58 X10^3/uL (0.83-4.51); Absolute Neutrophil Count 3.7 X10^3/uL (2.0-7.7); Basophil# 0.03 X10^3/uL; Basophil% 0.4 % (0-1); Eosinophil# 0.11 X10^3/uL; Eosinophils% 1.6 % (0-5); Hematocrit 44.1 % (40-54); Hemoglobin 15.4 g/dL (13.0-16.5); Lymphocyte # 2.58 X10^3/ul (4.0); Lymphocyte % 36.6 % (19-41); Mean Corp Hgb Conc 34.9 g/dL (32-36); Mean Corpuscular Hgb 31.1 pg (27.0-32.0); Mean Corpuscular Volume 89.1 fL (80-94); Mean Platelet Vol. 9.6 fl (6.2-12.0); Monocyte# 0.62 X10^3/uL; Monocyte% 8.8 % (0-10); NRBC Flagged by Analyzer 0 % (0-5); Neutrophil # 3.69 X10^3/uL (2.7-7.7); Neutrophil % 52.5 % (47-70); Platelet Count 196 K/mm3 (150-450); RBC Distribution Width CV 14.6 % (11.6-14.6); RBC Distribution Width SD 47.3 fl (35.1-43.9); Red Blood Count 4.95 M/mm3 (4.6-6.2)
[2019-11-06 17:24] LABS: ALB/GLOB Ratio 1.2 RATIO (0.9-2.4); AST(SGOT) 19 U/L (15-37); Alanine Aminotransfer ALT/SGPT 23 U/L (16-61); Alkaline Phosphatase 68 U/L (45-117); Anion Gap 7 (5-15); BUN 18 mg/dL (7-18); BUN/Creat Ratio 21.2 RATIO (10-20); Calcium,Total 8.4 mg/dL (8.5-10.1); Chloride 108 mmol/L (98-107); Creatinine, Serum 0.85 mg/dL (0.70-1.30); EST Glomerular Filtration Rate 95 mL/min (>60); Est Glom Filt Rate - Afr Amer 115 mL/min (>60); Globulin 3.4 g/dL (2.2-4.2); Glucose 96 mg/dL (74-106); Potassium 3.8 mmol/L (3.5-5.1); Protein, Total 7.4 g/dL (6.4-8.2); Sodium Level 140 mmol/L (136-145); Thyroid Stim Hormone (TSH) 2.96 uIU/mL (0.358-3.74)
[2019-11-06 17:40] LABS: Vitamin D,25 Hydroxy 22.8 ng/mL
== END ==
PROVIDERS: PCP Family Medicine Geriatric Medicine; Visit Provider Family Medicine Geriatric Medicine
DX: R53.83 Other fatigue (principal); E55.9 Vitamin D deficiency, unspecified
CPT/HCPCS: 36415; 80053; 82306; 84443; 85025

== ENCOUNTER → 2019-11-13 16:12 | Outpatient (CLI) | payer MEDICARE, BC, SELFPAY ==
[2019-07-02 08:10] VITALS: BMI 38.8
== END ==
PROVIDERS: PCP Family Medicine Geriatric Medicine; Referring Provider Urology; Visit Provider Urology
DX: R82.998 Other abnormal findings in urine (principal)
CPT/HCPCS: 87086

== ENCOUNTER → 2020-01-30 14:18 | Outpatient (CLI) | payer MEDICARE, BC, SELFPAY ==
[2019-07-02 08:10] VITALS: BMI 38.8
[2020-01-30 17:00] LABS: Basophil# 0.03 X10^3/uL; Basophil% 0.4 % (0-1); Eosinophil# 0.06 X10^3/uL; Eosinophils% 0.8 % (0-5); Hematocrit 45.7 % (40-54); Hemoglobin 15.7 g/dL (13.0-16.5); Lymphocyte % 28.9 % (19-41); Mean Corp Hgb Conc 34.4 g/dL (32-36); Mean Corpuscular Volume 90.3 fL (80-94); Mean Platelet Vol. 10.2 fl (6.2-12.0); Monocyte% 6.3 % (0-10); NRBC Flagged by Analyzer 0 % (0-5); Neutrophil # 5.04 X10^3/uL (2.7-7.7); Neutrophil % 63.3 % (47-70); Platelet Count 199 K/mm3 (150-450); RBC Distribution Width CV 13.3 % (11.6-14.6); RBC Distribution Width SD 44.2 fl (35.1-43.9); Red Blood Count 5.06 M/mm3 (4.6-6.2)
[2020-01-30 17:19] LABS: Vitamin D,25 Hydroxy 20.4 ng/mL
[2020-01-30 17:38] LABS: ALB/GLOB Ratio 1.1 RATIO (0.9-2.4); AST(SGOT) 24 U/L (15-37); Alanine Aminotransfer ALT/SGPT 33 U/L (16-61); Albumin, Serum 3.9 g/dL (3.2-5.0); Alkaline Phosphatase 66 U/L (45-117); Anion Gap 8 (5-15); BUN 21 mg/dL (7-18); BUN/Creat Ratio 20.8 RATIO (10-20); Calcium,Total 8.6 mg/dL (8.5-10.1); Chloride 108 mmol/L (98-107); Creatinine, Serum 1.01 mg/dL (0.70-1.30); EST Glomerular Filtration Rate 78 mL/min (>60); Est Glom Filt Rate - Afr Amer 94 mL/min (>60); Globulin 3.7 g/dL (2.2-4.2); Glucose 132 mg/dL (74-106); Potassium 3.6 mmol/L (3.5-5.1); Protein, Total 7.6 g/dL (6.4-8.2); Sodium Level 140 mmol/L (136-145); Thyroid Stim Hormone (TSH) 2.67 uIU/mL (0.358-3.74)
== END ==
PROVIDERS: PCP Family Medicine Geriatric Medicine; Visit Provider Family Medicine Geriatric Medicine
DX: E55.9 Vitamin D deficiency, unspecified (principal); R53.83 Other fatigue
CPT/HCPCS: 36415; 80053; 82306; 84443; 85025

== ENCOUNTER → 2021-02-16 11:26 | Outpatient (CLI) | payer MEDICARE, BC, SELFPAY ==
[2021-02-16 13:00] LABS: Absolute Lymphocyte Count 3.22 X10^3/uL (0.83-4.51); Absolute Neutrophil Count 3.9 X10^3/uL (2.0-7.7); Basophil# 0.06 X10^3/uL; Basophil% 0.7 % (0-1); Eosinophil# 0.23 X10^3/uL; Eosinophils% 2.8 % (0-5); Hematocrit 46.9 % (40-54); Hemoglobin 16.9 g/dL (13.0-16.5); Lymphocyte # 3.22 X10^3/ul (0.83-4.51); Lymphocyte % 38.9 % (19-41); Mean Corpuscular Hgb 31.6 pg (27.0-32.0); Mean Corpuscular Volume 87.8 fL (80-94); Mean Platelet Vol. 9.8 fl (6.2-12.0); Monocyte# 0.83 X10^3/uL; NRBC Flagged by Analyzer 0 % (0-5); Neutrophil # 3.91 X10^3/uL (2.7-7.7); Neutrophil % 47.2 % (47-70); Platelet Count 213 K/mm3 (150-450); RBC Distribution Width CV 13.9 % (11.6-14.6); RBC Distribution Width SD 44.9 fl (35.1-43.9); Red Blood Count 5.34 M/mm3 (4.6-6.2); White Blood Count 8.3 K/mm3 (4.4-11.0)
[2021-02-16 13:16] LABS: ALB/GLOB Ratio 1.1 RATIO (0.9-2.4); AST(SGOT) 26 U/L (15-37); Alanine Aminotransfer ALT/SGPT 39 U/L (16-61); Alkaline Phosphatase 62 U/L (45-117); Anion Gap 8 (5-15); BUN 20 mg/dL (7-18); BUN/Creat Ratio 19.8 RATIO (10-20); Calcium,Total 8.4 mg/dL (8.5-10.1); Chloride 110 mmol/L (98-107); Creatinine, Serum 1.01 mg/dL (0.70-1.30); EST Glomerular Filtration Rate 78 mL/min (>60); Est Glom Filt Rate - Afr Amer 94 mL/min (>60); Globulin 3.6 g/dL (2.2-4.2); Glucose 99 mg/dL (74-106); PSA,Total - Annual Screen 2.87 ng/mL (0.00-4.00); Potassium 3.6 mmol/L (3.5-5.1); Protein, Total 7.6 g/dL (6.4-8.2); Sodium Level 143 mmol/L (136-145); Thyroid Stim Hormone (TSH) 2.49 uIU/mL (0.358-3.74)
== END ==
PROVIDERS: PCP Family Medicine Geriatric Medicine; Visit Provider Family Medicine Geriatric Medicine
DX: E55.9 Vitamin D deficiency, unspecified (principal); R53.83 Other fatigue; Z12.5 Encounter for screening for malignant neoplasm of prostate
CPT/HCPCS: 36415; 80053; 82306; 84153; 84443; 85025; G0103

== ENCOUNTER → 2022-02-17 | Outpatient (CLI) | payer MEDICARE, BC, SELFPAY ==
[2022-02-17 12:47] LABS: Absolute Lymphocyte Count 2.48 X10^3/uL (0.83-4.51); Absolute Neutrophil Count 3.7 X10^3/uL (2.0-7.7); Basophil# 0.05 X10^3/uL; Basophil% 0.7 % (0-1); Eosinophil# 0.17 X10^3/uL; Eosinophils% 2.4 % (0-5); Hematocrit 44.6 % (40-54); Hemoglobin 15.4 g/dL (13.0-16.5); Lymphocyte # 2.48 X10^3/ul (0.83-4.51); Mean Corp Hgb Conc 34.5 g/dL (32-36); Mean Corpuscular Hgb 31.2 pg (27.0-32.0); Mean Corpuscular Volume 90.3 fL (80-94); Mean Platelet Vol. 9.8 fl (6.2-12.0); Monocyte# 0.66 X10^3/uL; Monocyte% 9.3 % (0-10); NRBC Flagged by Analyzer 0 % (0-5); Neutrophil # 3.71 X10^3/uL (2.7-7.7); Neutrophil % 52.3 % (47-70); Platelet Count 209 K/mm3 (150-450); RBC Distribution Width SD 46.1 fl (35.1-43.9); Red Blood Count 4.94 M/mm3 (4.6-6.2); White Blood Count 7.1 K/mm3 (4.4-11.0)
[2022-02-17 13:02] LABS: ALB/GLOB Ratio 1.1 RATIO (0.9-2.4); AST(SGOT) 26 U/L (15-37); Alanine Aminotransfer ALT/SGPT 30 U/L (16-61); Albumin, Serum 3.8 g/dL (3.2-5.0); Alkaline Phosphatase 58 U/L (45-117); Anion Gap 6 (5-15); BUN 16 mg/dL (7-18); BUN/Creat Ratio 15.2 RATIO (10-20); Calcium,Total 8.7 mg/dL (8.5-10.1); Chloride 108 mmol/L (98-107); Creatinine, Serum 1.05 mg/dL (0.70-1.30); EST Glomerular Filtration Rate 74 mL/min (>60); Est Glom Filt Rate - Afr Amer 90 mL/min (>60); Globulin 3.5 g/dL (2.2-4.2); Glucose 99 mg/dL (74-106); Potassium 3.5 mmol/L (3.5-5.1); Protein, Total 7.3 g/dL (6.4-8.2); Sodium Level 141 mmol/L (136-145)
[2022-02-17 13:17] LABS: Vitamin D,25 Hydroxy 22.2 ng/mL
== END | disposition home or self-care (01) ==
LOC: POLAB3 10:35
PROVIDERS: PCP Family Medicine Geriatric Medicine; Visit Provider Family Medicine Geriatric Medicine
DX: R53.83 Other fatigue (principal); E55.9 Vitamin D deficiency, unspecified
CPT/HCPCS: 36415; 80053; 82306; 84443; 85025

== ENCOUNTER → 2022-08-18 | Outpatient (CLI) | payer MEDICARE, BC, SELFPAY ==
[2022-08-18 13:10] LABS: Absolute Lymphocyte Count 2.28 X10^3/uL (0.83-4.51); Absolute Neutrophil Count 4.4 X10^3/uL (2.0-7.7); Basophil# 0.04 X10^3/uL; Basophil% 0.5 % (0-1); Eosinophil# 0.12 X10^3/uL; Eosinophils% 1.6 % (0-5); Hematocrit 45.3 % (40-54); Hemoglobin 15.9 g/dL (13.0-16.5); Lymphocyte # 2.28 X10^3/ul (0.83-4.51); Lymphocyte % 30.2 % (19-41); Mean Corp Hgb Conc 35.1 g/dL (32-36); Mean Corpuscular Hgb 31.1 pg (27.0-32.0); Mean Corpuscular Volume 88.6 fL (80-94); Mean Platelet Vol. 9.7 fl (6.2-12.0); Monocyte# 0.67 X10^3/uL; Monocyte% 8.9 % (0-10); NRBC Flagged by Analyzer 0 % (0-5); Neutrophil # 4.41 X10^3/uL (2.7-7.7); Neutrophil % 58.4 % (47-70); Platelet Count 206 K/mm3 (150-450); RBC Distribution Width CV 13.4 % (11.6-14.6); RBC Distribution Width SD 43.8 fl (35.1-43.9); Red Blood Count 5.11 M/mm3 (4.6-6.2); White Blood Count 7.6 K/mm3 (4.4-11.0)
[2022-08-18 13:27] LABS: Vitamin D,25 Hydroxy 29.6 ng/mL
[2022-08-18 13:49] LABS: AST(SGOT) 25 U/L (15-37); Alanine Aminotransfer ALT/SGPT 27 U/L (16-61); Albumin, Serum 3.7 g/dL (3.2-5.0); Alkaline Phosphatase 67 U/L (45-117); Anion Gap 5 (5-15); BUN 18 mg/dL (7-18); BUN/Creat Ratio 19.4 RATIO (10-20); Calcium,Total 8.9 mg/dL (8.5-10.1); Chloride 110 mmol/L (98-107); Creatinine, Serum 0.93 mg/dL (0.70-1.30); EST Glomerular Filtration Rate 85 mL/min (>60); Est Glom Filt Rate - Afr Amer 103 mL/min (>60); Globulin 3.6 g/dL (2.2-4.2); Glucose 94 mg/dL (74-106); Potassium 3.7 mmol/L (3.5-5.1); Protein, Total 7.3 g/dL (6.4-8.2); Sodium Level 137 mmol/L (136-145); Thyroid Stim Hormone (TSH) 3.32 uIU/mL (0.358-3.74)
== END | disposition home or self-care (01) ==
LOC: POLAB3 10:58
PROVIDERS: PCP Family Medicine Geriatric Medicine; Visit Provider Family Medicine Geriatric Medicine
DX: E55.9 Vitamin D deficiency, unspecified (principal); R53.83 Other fatigue
CPT/HCPCS: 36415; 80053; 82306; 84443; 85025

== ENCOUNTER → 2022-09-29 | Outpatient (CLI) | payer MEDICARE, BC, SELFPAY | END | disposition home or self-care (01) | LOC: LAB 13:18 | PROVIDERS: PCP Family Medicine Geriatric Medicine; Referring Provider Urology; Visit Provider Urology | DX: Z12.5 Encounter for screening for malignant neoplasm of prostate (principal) | CPT/HCPCS: 36415; 84153; G0103 ==

== ENCOUNTER → 2023-02-22 | Outpatient (CLI) | payer MEDICARE, BC, SELFPAY ==
[2023-02-22 11:19] LABS: Absolute Lymphocyte Count 2.41 X10^3/uL (0.83-4.51); Absolute Neutrophil Count 4.9 X10^3/uL (2.0-7.7); Basophil# 0.07 X10^3/uL; Basophil% 0.8 % (0-1); Eosinophil# 0.31 X10^3/uL; Eosinophils% 3.7 % (0-5); Hematocrit 46.2 % (40-54); Lymphocyte # 2.41 X10^3/ul (0.83-4.51); Lymphocyte % 28.6 % (19-41); Mean Corp Hgb Conc 34.6 g/dL (32-36); Mean Corpuscular Hgb 30.5 pg (27.0-32.0); Mean Platelet Vol. 9.4 fl (6.2-12.0); Monocyte# 0.77 X10^3/uL; Monocyte% 9.1 % (0-10); NRBC Flagged by Analyzer 0 % (0-5); Neutrophil # 4.85 X10^3/uL (2.7-7.7); Neutrophil % 57.6 % (47-70); Platelet Count 209 K/mm3 (150-450); RBC Distribution Width SD 45.1 fl (35.1-43.9); Red Blood Count 5.25 M/mm3 (4.6-6.2); White Blood Count 8.4 K/mm3 (4.4-11.0)
[2023-02-22 11:37] LABS: Vitamin D,25 Hydroxy 24.2 ng/mL
[2023-02-22 11:38] LABS: AST(SGOT) 21 U/L (15-37); Alanine Aminotransfer ALT/SGPT 29 U/L (16-61); Albumin, Serum 3.7 g/dL (3.2-5.0); Alkaline Phosphatase 70 U/L (45-117); Anion Gap 7 (5-15); BUN 17 mg/dL (7-18); BUN/Creat Ratio 16.2 RATIO (10-20); Calcium,Total 8.8 mg/dL (8.5-10.1); Chloride 110 mmol/L (98-107); Creatinine, Serum 1.05 mg/dL (0.70-1.30); EST Glomerular Filtration Rate 74 mL/min (>60); Est Glom Filt Rate - Afr Amer 89 mL/min (>60); Globulin 3.7 g/dL (2.2-4.2); Glucose 126 mg/dL (74-106); Potassium 3.5 mmol/L (3.5-5.1); Protein, Total 7.4 g/dL (6.4-8.2); Sodium Level 141 mmol/L (136-145); Thyroid Stim Hormone (TSH) 4.44 uIU/mL (0.358-3.74)
== END | disposition home or self-care (01) ==
LOC: POLAB3 10:25
PROVIDERS: PCP Family Medicine Geriatric Medicine; Visit Provider Family Medicine Geriatric Medicine
DX: R53.83 Other fatigue (principal); E55.9 Vitamin D deficiency, unspecified
CPT/HCPCS: 36415; 80053; 82306; 84443; 85025

== ENCOUNTER → 2023-08-24 | Outpatient (CLI) | payer MEDICARE, BC, SELFPAY ==
[2023-08-24 12:00] LABS: Absolute Lymphocyte Count 2.24 X10^3/uL (0.83-4.51); Absolute Neutrophil Count 4.3 X10^3/uL (2.0-7.7); Basophil# 0.06 X10^3/uL; Basophil% 0.8 % (0-1); Eosinophil# 0.19 X10^3/uL; Eosinophils% 2.6 % (0-5); Hematocrit 44.3 % (40-54); Hemoglobin 15.7 g/dL (13.0-16.5); Lymphocyte # 2.24 X10^3/ul (0.83-4.51); Lymphocyte % 30.1 % (19-41); Mean Corp Hgb Conc 35.4 g/dL (32-36); Mean Corpuscular Hgb 31.4 pg (27.0-32.0); Mean Corpuscular Volume 88.6 fL (80-94); Mean Platelet Vol. 9.5 fl (6.2-12.0); Monocyte# 0.64 X10^3/uL; Monocyte% 8.6 % (0-10); NRBC Flagged by Analyzer 0 % (0-5); Neutrophil % 57.6 % (47-70); Platelet Count 200 K/mm3 (150-450); RBC Distribution Width CV 13.8 % (11.6-14.6); RBC Distribution Width SD 44.4 fl (35.1-43.9); White Blood Count 7.5 K/mm3 (4.4-11.0)
[2023-08-24 12:16] LABS: Vitamin D,25 Hydroxy 17.2 ng/mL
[2023-08-24 12:25] LABS: AST(SGOT) 29 U/L (15-37); Alanine Aminotransfer ALT/SGPT 34 U/L (16-61); Albumin, Serum 3.6 g/dL (3.2-5.0); Alkaline Phosphatase 65 U/L (45-117); Anion Gap 6 (5-15); BUN 15 mg/dL (7-18); BUN/Creat Ratio 15.1 RATIO (10-20); Calcium,Total 8.5 mg/dL (8.5-10.1); Chloride 109 mmol/L (98-107); EST Glomerular Filtration Rate 78 mL/min (>60); Est Glom Filt Rate - Afr Amer 95 mL/min (>60); Globulin 3.5 g/dL (2.2-4.2); Glucose 99 mg/dL (74-106); Potassium 3.5 mmol/L (3.5-5.1); Protein, Total 7.1 g/dL (6.4-8.2); Sodium Level 139 mmol/L (136-145); Thyroid Stim Hormone (TSH) 3.99 uIU/mL (0.358-3.74)
== END | disposition home or self-care (01) ==
LOC: POLAB3 10:27
PROVIDERS: PCP Family Medicine Geriatric Medicine; Visit Provider Family Medicine Geriatric Medicine
DX: R53.83 Other fatigue (principal); E55.9 Vitamin D deficiency, unspecified; E03.9 Hypothyroidism, unspecified
CPT/HCPCS: 36415; 80053; 82306; 84443; 85025

== ENCOUNTER → 2023-10-03 | Outpatient (CLI) | payer MEDICARE, BC, SELFPAY ==
[2023-10-03 13:37] LABS: PSA,Total- Diagnostic 3.08 ng/mL (0.0-4.0); Thyroid Stim Hormone (TSH) 3.34 uIU/mL (0.358-3.74)
== END | disposition home or self-care (01) ==
LOC: LAB 12:45
PROVIDERS: PCP Family Medicine Geriatric Medicine; Referring Provider Urology; Visit Provider Urology
DX: E03.9 Hypothyroidism, unspecified (principal); N40.1 Benign prostatic hyperplasia with lower urinary tract symptoms
CPT/HCPCS: 36415; 84153; 84443

== ENCOUNTER → 2024-02-28 | Outpatient (CLI) | payer MEDICARE, BC, SELFPAY ==
[2024-02-28 10:26] LABS: Absolute Lymphocyte Count 2.24 X10^3/uL (0.83-4.51); Absolute Neutrophil Count 6.4 X10^3/uL (2.0-7.7); Basophil# 0.07 X10^3/uL; Basophil% 0.7 % (0-1); Eosinophil# 0.13 X10^3/uL; Eosinophils% 1.4 % (0-5); Hematocrit 44.5 % (40-54); Hemoglobin 15.6 g/dL (13.0-16.5); Lymphocyte # 2.24 X10^3/ul (0.83-4.51); Lymphocyte % 23.5 % (19-41); Mean Corp Hgb Conc 35.1 g/dL (32-36); Mean Corpuscular Hgb 30.6 pg (27.0-32.0); Mean Corpuscular Volume 87.3 fL (80-94); Mean Platelet Vol. 9.2 fl (6.2-12.0); Monocyte# 0.69 X10^3/uL; Monocyte% 7.2 % (0-10); NRBC Flagged by Analyzer 0 % (0-5); Neutrophil # 6.38 X10^3/uL (2.7-7.7); Neutrophil % 66.9 % (47-70); Platelet Count 245 K/mm3 (150-450); RBC Distribution Width CV 13.6 % (11.6-14.6); RBC Distribution Width SD 43.3 fl (35.1-43.9); White Blood Count 9.5 K/mm3 (4.4-11.0)
[2024-02-28 11:07] LABS: ALB/GLOB Ratio 0.9 RATIO (0.9-2.4); AST(SGOT) 19 U/L (15-37); Alanine Aminotransfer ALT/SGPT 16 U/L (16-61); Albumin, Serum 3.6 g/dL (3.2-5.0); Alkaline Phosphatase 79 U/L (45-117); Anion Gap 7 (5-15); BUN 19 mg/dL (7-18); Calcium,Total 8.8 mg/dL (8.5-10.1); Chloride 109 mmol/L (98-107); Creatinine, Serum 0.95 mg/dL (0.70-1.30); EST Glomerular Filtration Rate 83 mL/min (>60); Est Glom Filt Rate - Afr Amer 100 mL/min (>60); Glucose 157 mg/dL (74-106); Potassium 3.6 mmol/L (3.5-5.1); Protein, Total 7.6 g/dL (6.4-8.2); Sodium Level 140 mmol/L (136-145)
[2024-02-28 12:09] LABS: Hemoglobin A1c 5.2 % (3.8-5.6)
[2024-02-28 12:18] LABS: Vitamin D,25 Hydroxy 13.4 ng/mL
== END | disposition home or self-care (01) ==
LOC: POLAB3 09:59
PROVIDERS: PCP Family Medicine Geriatric Medicine; Visit Provider Family Medicine Geriatric Medicine
DX: R53.83 Other fatigue (principal); E55.9 Vitamin D deficiency, unspecified; R73.9 Hyperglycemia, unspecified
CPT/HCPCS: 36415; 80053; 82306; 83036; 84443; 85025

== ENCOUNTER → 2024-03-19 | Outpatient (CLI) | payer MEDICARE, BC, SELFPAY | END | disposition home or self-care (01) | LOC: POLAB3 14:36 | PROVIDERS: PCP Family Medicine Geriatric Medicine; Visit Provider Family Medicine Geriatric Medicine | DX: R68.83 Chills (without fever) (principal) | CPT/HCPCS: 87631 ==

== ENCOUNTER → 2024-04-04 | Outpatient (CLI) | payer MEDICARE, BC, SELFPAY | END | disposition home or self-care (01) | LOC: POLAB3 14:58 | PROVIDERS: PCP Family Medicine Geriatric Medicine; Visit Provider Family Medicine Geriatric Medicine | DX: R68.83 Chills (without fever) (principal) | CPT/HCPCS: 87631 ==

== ENCOUNTER → 2024-06-27 | Outpatient (CLI) | payer MEDICARE, BC, SELFPAY ==
--- NOTE | 2024-06-27 14:30 | CT_ITS ---
PROCEDURE: CTA CHEST W/WO CONTRAST REASON FOR EXAM: Cough and shortness of breath. Recent COVID. TECHNIQUE: CTA imaging of the chest with intravenous contrast. 3D reconstructions. CONTRAST: 100 cc of Isovue 370. COMPARISON: Comparison is made with prior study dated May 28, 2019. FINDINGS: Hardware: None. Lymph nodes: No mediastinal hilar or axillary lymphadenopathy. Heart: Normal heart size. No pericardial effusion. RV/LV Diameter Ratio: N/A Thoracic Aorta: No thoracic aortic aneurysm or dissection. Pulmonary Vessels: No evidence of acute pulmonary emboli through the major subsegmental branches. Most Proximal Level of Embolus (if embolus present): N/A Lungs and Airways: The lungs are normally expanded and clear. Scattered calcified granulomas. Pleura: No pleural effusion. No pneumothorax. Upper Abdomen: Visualized portions of the upper abdominal viscera are unremarkable. Bones: Bone windows are unremarkable. CT/CTA Chest W/WO Contrast IMPRESSION: No evidence of pulmonary embolus. One or more dose reduction techniques were used (e.g., Automated exposure contr ol, adjustment of the mA and/or kV according to patient size, use of iterative reconstruction technique). Reading Location: [facility]
[2024-06-27 14:42] LABS: Absolute Neutrophil Count 7.7 X10^3/uL (2.0-7.7); Basophil# 0.05 X10^3/uL; Basophil% 0.4 % (0-1); Eosinophil# 0.05 X10^3/uL; Eosinophils% 0.4 % (0-5); Hematocrit 40.7 % (40-54); Hemoglobin 13.9 g/dL (13.0-16.5); Lymphocyte % 23.9 % (19-41); Mean Corp Hgb Conc 34.2 g/dL (32-36); Mean Corpuscular Volume 90.6 fL (80-94); Mean Platelet Vol. 9.5 fl (6.2-12.0); Monocyte# 1.05 X10^3/uL; NRBC Flagged by Analyzer 0 % (0-5); Neutrophil # 7.72 X10^3/uL (2.7-7.7); Platelet Count 254 K/mm3 (150-450); RBC Distribution Width CV 13.5 % (11.6-14.6); RBC Distribution Width SD 44.5 fl (35.1-43.9); Red Blood Count 4.49 M/mm3 (4.6-6.2); White Blood Count 11.7 K/mm3 (4.4-11.0)
[2024-06-27 15:41] LABS: Lactic Acid 1.8 mmol/L (0.0-2.0)
[2024-06-27 16:15] LABS: Anion Gap 15 (5-15); BUN 19 mg/dL (4-19); BUN/Creat Ratio 23.1 RATIO (10-20); Carbon Dioxide 20.4 mmol/L (21.0-32.0); Chloride 108 mmol/L (98-108); Creatinine, Serum 0.81 mg/dL (0.70-1.20); EST Glomerular Filtration Rate 93 (>60); Glucose 115 mg/dL (70-99); Sodium Level 143 mmol/L (133-145)
== END | disposition home or self-care (01) ==
PROVIDERS: PCP Family Medicine Geriatric Medicine; Referring Provider Family Medicine Geriatric Medicine; Visit Provider Family Medicine Geriatric Medicine
DX: R06.02 Shortness of breath (principal); R68.83 Chills (without fever)
CPT/HCPCS: 36415; 71275; 80048; 83605; 85025; 87631; Q9967

== ENCOUNTER → 2024-08-29 | Outpatient (CLI) | payer MEDICARE, BC, SELFPAY ==
[2024-08-29 10:59] LABS: Absolute Lymphocyte Count 2.33 X10^3/uL (0.83-4.51); Absolute Neutrophil Count 6.3 X10^3/uL (2.0-7.7); Basophil# 0.03 X10^3/uL; Basophil% 0.3 % (0-1); Eosinophil# 0.11 X10^3/uL; Eosinophils% 1.1 % (0-5); Hemoglobin 13.8 g/dL (13.0-16.5); Lymphocyte # 2.33 X10^3/ul (0.83-4.51); Lymphocyte % 24.3 % (19-41); Mean Corp Hgb Conc 34.5 g/dL (32-36); Mean Corpuscular Hgb 31.2 pg (27.0-32.0); Mean Corpuscular Volume 90.3 fL (80-94); Mean Platelet Vol. 9.3 fl (6.2-12.0); Monocyte# 0.75 X10^3/uL; Monocyte% 7.8 % (0-10); NRBC Flagged by Analyzer 0 % (0-5); Neutrophil # 6.31 X10^3/uL (2.7-7.7); Neutrophil % 66.1 % (47-70); Platelet Count 183 K/mm3 (150-450); RBC Distribution Width CV 14.9 % (11.6-14.6); RBC Distribution Width SD 49.3 fl (35.1-43.9); Red Blood Count 4.43 M/mm3 (4.6-6.2); White Blood Count 9.6 K/mm3 (4.4-11.0)
[2024-08-29 11:47] LABS: ALB/GLOB Ratio 1.3 RATIO (0.9-2.4); AST(SGOT) 20 U/L (<=37); Alanine Aminotransfer ALT/SGPT 14 U/L (<=46); Alkaline Phosphatase 84 U/L (40-129); Anion Gap 10 (5-15); BUN 14 mg/dL (4-19); BUN/Creat Ratio 15.7 RATIO (10-20); Calcium,Total 8.9 mg/dL (7.6-11.0); Carbon Dioxide 25.4 mmol/L (21.0-32.0); Chloride 107 mmol/L (98-108); Cholesterol 147 mg/dL (<=200); EST Glomerular Filtration Rate 90 (>60); Glucose 92 mg/dL (70-99); High Density Lipoprotein 50 mg/dL; Low Density Lipoprotein Calc. 84 mg/dL; Potassium 3.6 mmol/L (3.3-5.1); Sodium Level 143 mmol/L (133-145); Total Bilirubin 0.82 mg/dL (0.00-1.30); Triglycerides 65 mg/dL; Very Low Density Lipoprotein 13 mg/dL (5-40); cholesterol:hdl ratio screen 2.95
[2024-08-29 11:49] LABS: Vitamin D,25 Hydroxy 29.7 ng/mL (30-100)
== END | disposition home or self-care (01) ==
LOC: LAB 10:25
PROVIDERS: PCP Family Medicine Geriatric Medicine; Referring Provider Family Medicine Geriatric Medicine; Visit Provider Family Medicine Geriatric Medicine
DX: E55.9 Vitamin D deficiency, unspecified (principal); R53.83 Other fatigue; E78.5 Hyperlipidemia, unspecified
CPT/HCPCS: 36415; 80053; 80061; 82306; 84443; 85025

== ENCOUNTER → 2024-10-16 | Outpatient (CLI) | payer MEDICARE, BC, SELFPAY ==
[2024-10-16 13:28] LABS: PSA,Total - Annual Screen 2.45 ng/mL (0.02-4.00)
== END | disposition home or self-care (01) ==
LOC: LAB 11:32
PROVIDERS: PCP Family Medicine Geriatric Medicine; Referring Provider Urology; Visit Provider Urology
DX: Z12.5 Encounter for screening for malignant neoplasm of prostate (principal)
CPT/HCPCS: 36415; 84153; G0103

== ENCOUNTER 2025-02-06 10:49 | Outpatient (CLI) | payer MEDICARE, BC, SELFPAY ==
[2025-02-06 11:11] LABS: Hematocrit 45.2 % (40-54); Hemoglobin 15.7 g/dL (13.0-16.5); Immature Granulocytes Count 0.030 X10^3/uL (0.0-0.0); Mean Corp Hgb Conc 34.7 g/dL (32-36); Mean Corpuscular Volume 88.8 fL (80-94); Mean Platelet Vol. 9.4 fl (6.2-12.0); NRBC Flagged by Analyzer 0 % (0-5); Platelet Count 230 K/mm3 (150-450); RBC Distribution Width CV 13.6 % (11.6-14.6); RBC Distribution Width SD 44.5 fl (35.1-43.9); Red Blood Count 5.09 M/mm3 (4.6-6.2); White Blood Count 8.5 K/mm3 (4.4-11.0)
[2025-02-06 11:32] LABS: CRP 4.99 mg/L (0.0-3.0)
[2025-02-06 11:41] LABS: AST(SGOT) 26 U/L (<=37); Alanine Aminotransfer ALT/SGPT 13 U/L (<=46); Albumin, Serum 4.2 g/dL (3.4-4.8); Alkaline Phosphatase 80 U/L (40-129); Anion Gap 11 (5-15); BUN 17 mg/dL (4-19); BUN/Creat Ratio 18.9 RATIO (10-20); Calcium,Total 9.3 mg/dL (7.6-11.0); Carbon Dioxide 23.1 mmol/L (21.0-32.0); Chloride 108 mmol/L (98-108); Globulin 3.1 g/dL (2.2-4.2); Glucose 111 mg/dL (70-99); Potassium 4.4 mmol/L (3.3-5.1)
[2025-02-06 18:50] LABS: Xtra Tube Kwok EXTRA TUBE
== END 2025-02-06 23:59 | disposition home or self-care (01) ==
LOC: POLAB3 10:50
PROVIDERS: PCP Family Medicine Geriatric Medicine; Visit Provider Family Medicine Geriatric Medicine
DX: R79.82 Elevated C-reactive protein (CRP) (principal); R53.83 Other fatigue; R70.0 Elevated erythrocyte sedimentation rate
CPT/HCPCS: 36415; 80053; 85025; 85652; 86140

== ENCOUNTER → 2025-03-05 | Outpatient (CLI) | payer MEDICARE, BC, SELFPAY ==
[2025-03-05 14:57] LABS: Hematocrit 44.0 % (40-54); Hemoglobin 15.6 g/dL (13.0-16.5); Immature Granulocytes Count 0.030 X10^3/uL (0.0-0.0); Mean Corp Hgb Conc 35.5 g/dL (32-36); Mean Corpuscular Volume 87.3 fL (80-94); Mean Platelet Vol. 9.5 fl (6.2-12.0); NRBC Flagged by Analyzer 0 % (0-5); Platelet Count 200 K/mm3 (150-450); RBC Distribution Width CV 13.8 % (11.6-14.6); RBC Distribution Width SD 44.2 fl (35.1-43.9); Red Blood Count 5.04 M/mm3 (4.6-6.2); White Blood Count 10.2 K/mm3 (4.4-11.0)
[2025-03-05 15:55] LABS: Vitamin D,25 Hydroxy 19.7 ng/mL (30-100)
[2025-03-05 15:57] LABS: AST(SGOT) 24 U/L (<=37); Alanine Aminotransfer ALT/SGPT 16 U/L (<=46); Albumin, Serum 4.2 g/dL (3.4-4.8); Alkaline Phosphatase 73 U/L (40-129); Anion Gap 12 (5-15); BUN 14 mg/dL (4-19); BUN/Creat Ratio 14.3 RATIO (10-20); Calcium,Total 9.4 mg/dL (7.6-11.0); Carbon Dioxide 23.8 mmol/L (21.0-32.0); Chloride 105 mmol/L (98-108); Globulin 2.9 g/dL (2.2-4.2); Glucose 155 mg/dL (70-99); Potassium 3.7 mmol/L (3.3-5.1)
[2025-03-05 22:47] LABS: Xtra Tube Kwok EXTRA TUBE
== END | disposition home or self-care (01) ==
LOC: POLAB3 14:47
PROVIDERS: PCP Family Medicine Geriatric Medicine; Visit Provider Family Medicine Geriatric Medicine
DX: E11.65 Type 2 diabetes mellitus with hyperglycemia (principal); R53.83 Other fatigue; E55.9 Vitamin D deficiency, unspecified
CPT/HCPCS: 36415; 80053; 82306; 83036; 84443; 85025